=== PATIENT | male | born 1990 | race Caucasian/White ===

== ENCOUNTER 2016-06-17 14:40 | Emergency (ER) | payer SELFPAY ==
[~2016-06-17] VITALS: Ht 157.5 cm; Wt 74.5 kg
[2016-06-17 14:42] VITALS: Ht 157.5 cm; Wt 74.5 kg
== END 2016-06-17 18:05 | disposition left against medical advice (07) ==
LOC: FTE 14:40
DX: Z53.21 Procedure and treatment not carried out due to patient leaving prior to being seen by health care provider (principal)